=== PATIENT | female | born 1970 | race Caucasian/White ===

== ENCOUNTER 2021-12-08 13:24 | Emergency (ER) | payer OTHER, MEDICAID ==
[~2021-12-08] VITALS: Ht 152.4 cm; Wt 77.1 kg
[~2021-12-08 13:24] MED LIST: METH4TAB3 PO; SERT50TA PO; SUL500 PO
[2021-12-08 13:30] VITALS: BP 164/81
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
[2021-12-08] MEDS ORDERED: KETOROLAC 30 MG/ML VIAL IM ONE (14:25)
--- NOTE | 2021-12-08 14:34 | NUR ---
XRAY AT BEDSIDE
[2021-12-08] MEDS ORDERED: METH-1681 PO (15:55)
[2021-12-08] MEDS ORDERED: IBUP-2213 PO (15:55)
[2021-12-08 16:10] VITALS: BP 121/73
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
--- NOTE | 2021-12-08 16:16 | NUR ---
Chart checked and completed. The patient's care was reviewed and supervised by Amy Miller RN.
== END 2021-12-08 16:10 | disposition home or self-care (01) ==
LOC: MED 13:24
DX: S20.211A Contusion of right front wall of thorax, initial encounter (principal); Z79.899 Other long term (current) drug therapy; Z79.1 Long term (current) use of non-steroidal anti-inflammatories (NSAID); V89.2XXA Person injured in unspecified motor-vehicle accident, traffic, initial encounter; Y93.89 Activity, other specified; Y92.410 Unspecified street and highway as the place of occurrence of the external cause; Y99.8 Other external cause status
CPT/HCPCS: 71045; 71120; 96372; 99284; J1885